=== PATIENT | female | born 1970 | race Caucasian/White ===

== ENCOUNTER → 2017-12-16 | Outpatient (CLI) | payer OTHER ==
[2016-12-06 12:51] VITALS: BMI 26.6
[~2017-12-16] MED LIST: BUPR-472 PO; BUPXL150 PO; CELE-1 PO; CYCL10TA29 PO; DOCU-416 PO; DULERAPT IH; ESC10 PO; HYDR25CA83 PO; IBU800 PO; KET10 PO; LEVO25TA57 PO; MULT-1379 PO; MULT-893 PO; OXC300 PO; OXCA300T44 PO; OXYC-865 PO; PER PO; PRE10 PO; TRAZ-156 PO; TRAZ150T8 PO; TRAZ50 PO; TRAZODONE PO; TRILEPTAL PO
--- NOTE | 2017-12-16 12:21 | RADIOLOGY IMAGING REPORT ---
[facility] PATIENT NAME: ELICEO SARAH : [id number] MR: [id number] V: [id number] EXAM DATE: ORDERING PHYSICIAN: JANEL SANCHEZ TECHNOLOGIST: Beverly Chopra PROCEDURE:BILATERAL DIGITAL SCREENING MAMMOGRAM WITH CAD ASSISTED INTERPRETATION & 3D TOMOSYNTHESIS COMPARISON:Dating back to 2014 are available. TECHNIQUE: Routine CC & MLO 3D tomographic images were obtained of both breasts. CAD was used. INDICATIONS:screening BREAST DENSITY: There are scattered fibroglandular densities. FINDINGS: There are scattered stable asymmetries in both breasts. There is no dominant mass, suspicious cluster of calcifications or persistent areas of architectural distortion. DIAGNOSTIC CATEGORY 1--NEGATIVE. RECOMMENDATIONS: ROUTINE MAMMOGRAM AND CLINICAL EVALUATION IN 1 YR. IMPRESSION: BIRADS 1: Negative Dictated by: Syed Nicoel M.D. on 12/16/2017 at 9:04 Transcribed by: DIANA on 12/16/2017 at 11:35 Approved by: Syed Nicole M.D. on 12/16/2017 at 12:20 [facility]
== END ==
LOC: MAMO 00:53
PROVIDERS: ATTEND Nurse Practitioner Psychiatric/Mental Health
DX: Z12.31 Encounter for screening mammogram for malignant neoplasm of breast (principal)
CPT/HCPCS: 77063; 77067

== ENCOUNTER 2018-05-09 08:08 | Emergency (ER) | payer OTHER ==
[2016-12-06 12:51] VITALS: Wt 79.4 kg
[2018-05-09] MEDS ORDERED: ALBUTEROL 8 GM INHALER INH ONE (08:45)
[2018-05-09] MEDS ORDERED: DEXAMETHASONE 4 MG TAB PO ONE (08:45)
[2018-05-09] MEDS ORDERED: KETOROLAC 60 MG/2 ML VIAL IM ONE (08:45)
[2018-05-09] MEDS ORDERED: DIAZEPAM 5 MG TAB PO ONE (08:45)
[2018-05-09 10:00] VITALS: BP 121/87
[2018-05-09] MEDS ORDERED: DIA5 PO (10:06)
[2018-05-09] MEDS ORDERED: KET10 PO (10:06)
--- NOTE | 2018-05-09 10:20 | ER Report ---
History and Physical Time Seen By MD: 08:45 Hx. of Stated Complaint: PATIENT HURT HER BACK AT WORK 2 DAYS AGO. SHE IS ALSO REPORTING A COUGH FOR 5 MONTHS. 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 No fever chills, no changes in bowel or bladder, no midline pain, no urinary symptoms, no abdominal pain. She describes it as just a nagging pain after the incident and has been taking Aleve, however early this morning she felt as if her pain was worsening. Also reports a chronic cough since December which is not improved. She is had a workup by her primary care physician, and states that she is looking to be evaluated by a cooling pan tender. Allergies: Coded Allergies: metoclopramide (Verified Allergy, Mild, SEIZURE, 02/02/16) propoxyphene (Verified Adverse Reaction, Mild, VOMIT, 02/02/16) Home Meds Reported Medications Trazodone Hcl (TRAZODONE HCL) 50 Mg Tablet, 50-150 MG PO QHS 12/09/16 Multivitamin (MULTIVITAMINS) 1 Each Tab.chew, 1 EACH PO DAILY, TAB.CHEW 12/09/16 Oxcarbazepine (TRILEPTAL) 300 Mg Tablet, 300 MG PO HS 12/05/16 Multivits,-,Other Min (THERA-M) 1 Each Tablet, 1 EACH PO QDAY 02/06/16 Oxcarbazepine (Trileptal) 300 Mg Tab, 300 MG PO QHS, #30 1 Refill 11/25/11 Trazodone Hcl (Desyrel) 50 Mg Tab, 50-150 MG PO QHS Y for INSOMNIA, #30 1 Refill 11/25/11 Discontinued Reported Medications Bupropion Hcl (WELLBUTRIN XL) 150 Mg Tab.er.24h, 300 MG PO QDAY, TAB 12/05/16 Hydroxyzine Pamoate (VISTARIL) 25 Mg Capsule, 25-50 MG PO Y for ANXIETY, CAPSULE 02/06/16 Docusate Sodium (COLACE) 100 Mg Capsule, 100 MG PO Q12H, CAPSULE 02/06/16 Levothyroxine Sodium (SYNTHROID) 25 Mcg Tablet, 25 MCG PO QDAY, #30 1 Refill 02/06/16 Bupropion Hcl (Wellbutrin Xl) 150 Mg Tabcr, 300 MG PO QDAY, #30 1 Refill 11/25/11 Reviewed Nurses Notes: Yes Old Medical Records Reviewed: Yes Hx Smoking: Yes Smoking Status: Former Smoker Exposure to Second Hand Smoke?: Yes Hx Substance Use Disorder: No Hx Alcohol Use: Yes Constitutional Vital Sign - Last 24 Hours 05/09/18 05/09/18 08:14 08:55 Temp 98.7 Pulse 83 78 Resp 20 18 Pulse Ox 95 Physical Exam General Appearance: The patient is alert, has no immediate need for airway protection and no current signs of toxicity. Eyes: Pupils equal and round no injection. Respiratory: Chest is non tender, lungs are clear to auscultation. Cardiac: regular rate and rhythm Gastrointestinal: Abdomen is soft and non tender, no masses, bowel sounds normal. Musculoskeletal: TTP of the right lumbar para spinal region, no midline TTP Extremities have full range of motion and are non tender. Skin: No rashes or lesions. DIFFERENTIAL DIAGNOSIS: After history and physical exam differential diagnosis was considered for back pain including but not limited to muscular pain, herniated disc, spine fracture, intra-abdominal causes and urinary tract infection. 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 No abdominal pain, changes in bowel or bladder, fever chills, or urinary symptoms. Think this is consistent with an uncomplicated back strain with muscle spasm. She was given Decadron, Toradol and Valium for possible spasm. Her symptoms have slightly improved. I will discharge her with a very short course of Valium and also by mouth Toradol. I also refilled her Proventil inhaler to help with her chronic cough. She will be following up with a cooling pan tender for her chronic cough. Decision to Disposition Date: May 09, 2018 Decision to Disposition Time: 10:04 Depart Departure Latest Vital Signs Vital Signs Date Time Temp Pulse Resp B/P (MAP) Pulse Ox O2 Delivery O2 Flow Rate FiO2 05/09/18 08:55 78 18 05/09/18 08:14 98.7 95 Impression: Primary Impression: Back muscle spasm Condition: Improved Disposition: HOME OR SELF-CARE Referrals: JANEL SANCHEZ (PCP) New Scripts Diazepam (VALIUM) 5 Mg Tablet 5 MG PO 2-3XD for PAIN for 3 Days, #8 TAB Prov: CAROLYNE CHONG MD 05/09/18 Ketorolac Tromethamine (KETOROLAC TROMETHAMINE) 10 Mg Tab 10 MG PO Q6H Y for PAIN, #12 TAB 0 Refills Prov: CAROLYNE CHONG MD 05/09/18 Patient Instructions: Low Back Strain (ED) CAROLYNE CHONG MD May 09, 2018 10:20
== END 2018-05-09 10:34 | disposition home or self-care (01) ==
LOC: ER 08:13
DX: M62.830 Muscle spasm of back (principal)
CPT/HCPCS: 94640; 96372; 99283; J1885; J3535; J8540

== ENCOUNTER → 2018-06-02 | Outpatient (CLI) | payer OTHER ==
[2016-12-06 12:51] VITALS: BMI 26.6
[~2018-06-02] MED LIST changes: +DIA5 PO; -TRAZ-156 PO; +TRAZ50TA34 PO
--- NOTE | 2018-06-02 15:50 | RADIOLOGY IMAGING REPORT ---
FACILITY: [facility] - [place] PATIENT NAME: Keisha Dixon : 1970 MR: [id number] V: [id number] EXAM DATE: ORDERING PHYSICIAN: JANEL SANCHEZ TECHNOLOGIST: Location: [facility] Patient: Keisha Dixon : 1970 Visit/Account:[id number] Date of Sevice: 06/02/2018 Exam type: CHEST PA AND LAT History: Cough x7 months, shortness of breath and chest tightness Comparison: November 25, 2011. Findings: The lungs are free of acute effusions infiltrates or edema. No evidence of a pneumothorax or pneumom ediastinum. Cardiac silhouette is normal in size. The trachea is in midline. Visualized bones are unremarkable for age. IMPRESSION: 1. No acute cardiopulmonary process is seen Report Dictated By: Magdalene Patton MD at 06/02/2018 3:43 PM Report E-Signed By: Magdalene Patton MD at 06/02/2018 3:45 PM WSN:[id number]
== END ==
LOC: RAD 15:04
PROVIDERS: ATTEND Nurse Practitioner Psychiatric/Mental Health
DX: R05 Cough (principal)
CPT/HCPCS: 71046

== ENCOUNTER 2019-06-02 10:08 | Emergency (ER) | payer OTHER ==
[2016-12-06 12:51] VITALS: Wt 77.1 kg
[~2019-06-02 10:08] MED LIST changes: -TRAZ50TA34 PO; +TRAZ50TA52 PO
[2019-06-02] MEDS ORDERED: RANI-54 PO (10:34)
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
--- NOTE | 2019-06-02 11:35 | RADIOLOGY IMAGING REPORT ---
FACILITY: [facility] PATIENT NAME: Keisha Dixon : 1970 MR: [id number] V: [id number] EXAM DATE: ORDERING PHYSICIAN: BASHIR ALONSO TECHNOLOGIST: Location: [facility] Patient: Keisha Dixon : 1970 Visit/Account:[id number] Date of Sevice: 06/02/2019 FEMUR LEFT History: Left femur. Comparison study: None. Findings: There is no fracture involving the left femur. The left hip and left knee show only mild findings of joint space narrowing. IMPRESSION: Unremarkable images of the left femur. No findings of fracture. Report Dictated By: Dominic Uriarte MD at 06/02/2019 11:27 AM Report E-Signed By: Dominic Uriarte MD at 06/02/2019 11:27 AM WSN:[id number]
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
[2019-06-02 11:48] VITALS: BP 130/80
[2019-06-02] MEDS ORDERED: IBUPROFEN 600 MG TAB PO ONE (11:50)
== END 2019-06-02 12:10 | disposition home or self-care (01) ==
LOC: ER 10:43
DX: S70.12XA Contusion of left thigh, initial encounter (principal); S46.912A Strain of unspecified muscle, fascia and tendon at shoulder and upper arm level, left arm, initial encounter
CPT/HCPCS: 99284

== ENCOUNTER → 2019-06-14 | Outpatient (CLI) | payer OTHER ==
[2016-12-06 12:51] VITALS: BMI 26.6
[~2019-06-14] MED LIST changes: +RANI-54 PO
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
== END ==
LOC: RAD 13:32
PROVIDERS: ATTEND Nurse Practitioner Psychiatric/Mental Health
DX: M25.552 Pain in left hip (principal)